=== PATIENT | male | born 1965 | race Caucasian/White ===

== ENCOUNTER 2019-10-02 10:21 | Day surgery (SDC) | payer OTHER ==
[~2019-10-02] VITALS: Ht 170.2 cm; Wt 76.6 kg
[~2019-10-02 10:21] MED LIST: AMLO-150 PO; ATOR40TA78 PO; ESCI10TA PO; OLME1TAB82 PO; [UNRECOGNIZED DRUG - OTHER] PO
[2019-10-02 10:49] VITALS: BP 138/87
[2019-10-02] MEDS ORDERED: FENTANYL PF 100 MCG/2ML ONE ×3 (10:55→13:00)
[2019-10-02] MEDS ORDERED: MIDAZOLAM 1 MG/ML, 2ML ONE (10:55)
[2019-10-02] MEDS ORDERED: LIDOCAINE-MPF 2% ,5ML ONE (10:56)
[2019-10-02] MEDS ORDERED: BUPIVACAINE/PF-EPI 0.5% 1:200K ONE (11:30)
[2019-10-02] MEDS ORDERED: hydrALAzine 20 MG/ML, 1ML IV PRN (12:00)
[2019-10-02] MEDS ORDERED: PROMETHAZINE 25 MG SUPP PR PRN (12:00)
[2019-10-02] MEDS ORDERED: HYDROmorphone 1 MG/ML, 1ML INJ IVPush PRN (12:00)
[2019-10-02] MEDS ORDERED: ONDANSETRON 2MG/ML, 2ML IV PRN (12:00)
[2019-10-02] MEDS ORDERED: LABETALOL 5MG/ML, 20ML IV PRN (12:00)
[2019-10-02] MEDS ORDERED: MEPERIDINE/PF 25MG/ML,1ML IVPush PRN (12:00)
[2019-10-02] MEDS ORDERED: ACETAMINOPHEN 325 MG TABLET PO PRN (12:00)
[2019-10-02] MEDS ORDERED: LORazepam 2 MG/ML, 1ML IVPush PRN (12:00)
[2019-10-02] MEDS ORDERED: PROMETHAZINE 25 MG/ML, 1ML IV PRN (12:00)
[2019-10-02] MEDS ORDERED: ONDANSETRON ODT 8 MG PO PRN (12:00)
[2019-10-02] MEDS ORDERED: OXYcodone 5 MG/5 ML ORAL.SOL UDC PO PRN (12:00)
[2019-10-02] MEDS ORDERED: LACTATED RINGERS 1,000 ML IV SCH ×2 (12:00→12:56)
[2019-10-02] MEDS ORDERED: DEXAMETHASONE 4 MG/ML, 1ML ONE (12:36)
[2019-10-02] MEDS ORDERED: ONDANSETRON 2MG/ML, 2ML ONE (12:36)
[2019-10-02] MEDS ORDERED: CEFAZOLIN 1,000 MG ONE (12:36)
[2019-10-02] MEDS ORDERED: PROPOFOL 10 MG/ML, 20ML ONE (12:36)
[2019-10-02] MEDS ORDERED: PROMETHAZINE 25 MG/ML, 1ML IM PRN (13:00)
[2019-10-02] MEDS ORDERED: ONDANSETRON 2MG/ML, 2ML IVPush PRN (13:00)
[2019-10-02] MEDS ORDERED: morphine SULFATE 10 MG/ML, 1ML IVPush PRN (13:00)
[2019-10-02] MEDS ORDERED: OXYcodone 5 MG/5 ML ORAL.SOL UDC ONE (13:01)
[2019-10-02] MEDS: FENTANYL PF 100 MCG/2ML IV PRN ×3 (13:02→13:18)
== END 2019-10-02 15:20 | disposition home or self-care (01) ==
LOC: OUT 10:21
PROVIDERS: ATTEND Surgery
DX: K40.30 Unilateral inguinal hernia, with obstruction, without gangrene, not specified as recurrent (principal); I10 Essential (primary) hypertension; F41.9 Anxiety disorder, unspecified; F10.10 Alcohol abuse, uncomplicated; Z79.899 Other long term (current) drug therapy; Z80.9 Family history of malignant neoplasm, unspecified; Z82.49 Family history of ischemic heart disease and other diseases of the circulatory system
CPT/HCPCS: 36415; 49507; 80053; C1781; J0690; J1100; J2250; J2405; J2704; J3010

== ENCOUNTER 2020-11-16 03:19 | Emergency (ER) | payer BC, OTHER ==
[~2020-11-16] VITALS: Ht 170.2 cm; Wt 78.0 kg
[~2020-11-16 03:19] MED LIST changes: -ESCI10TA PO; +ESCI10TA97 PO; +OLME-7 PO; -OLME1TAB82 PO
[2020-11-16 04:17] LABS: MICROSCOPIC NOT IND
[2020-11-16 05:19] LABS: BASOPHILS % (AUTO) 1 % (0-1); EOSINOPHILS % (AUTO) 1 % (1-7); LYMPHOCYTES % (AUTO) 23 % (22-44); MEAN CORPUSCULAR HGB CONC 34.2 g/dL (33.2-36.2); MEAN PLATELET VOLUME 8.6 fL (7.4-10.4); MONOCYTES % (AUTO) 12 % (2-9); NEUTROPHILS % (AUTO) 63 % (42-75); PLATELET COUNT 296 x10^3/uL (130-400); RED BLOOD COUNT 4.53 x10^6/uL (4.38-5.82); RED CELL DISTRIBUTION WIDTH 13.3 % (9.4-14.8)
[2020-11-16 05:29] LABS: ANION GAP 7 mmol/L (5-15); CALCIUM 8.8 mg/dL (8.5-10.1); CHLORIDE 106 mmol/L (98-107); CREATININE 0.84 mg/dL (0.7-1.3)
[2020-11-16 05:30] LABS: ALANINE AMINOTRANSFERASE 29 U/L (12-78); ALBUMIN 3.6 g/dL (3.4-5.0)
[2020-11-16 05:32] LABS: ALKALINE PHOSPHATASE 76 U/L (45-117); BILIRUBIN,TOTAL 1.4 mg/dL (0.2-1.0); TOTAL PROTEIN 7.1 g/dL (6.4-8.2)
--- NOTE | 2020-11-16 05:34 | NUR ---
PT RESTING IN BED WITH MONITOR ON. PT VSS. PT C/O ABD PAIN THAT "MOVES AROUND BELLY:
[2020-11-16 05:38] LABS: MD NO
[2020-11-16 06:33] VITALS: BP 123/83
--- NOTE | 2020-11-16 06:48 | NUR ---
REPORT TO [facility]
== END 2020-11-16 07:10 | disposition home or self-care (01) ==
LOC: ED 05:45
DX: K59.00 Constipation, unspecified (principal); R10.9 Unspecified abdominal pain; R11.2 Nausea with vomiting, unspecified; I10 Essential (primary) hypertension; E78.5 Hyperlipidemia, unspecified
CPT/HCPCS: 36415; 74021; 80053; 81003; 83690; 85025; 99284